=== PATIENT | female | born 1960 | race Caucasian/White ===

== ENCOUNTER 2019-11-14 16:18 | Inpatient (IN) | payer BC ==
[~2019-11-14] VITALS: Ht 152.4 cm; Wt 119.0 kg
[2019-11-14 22:24] VITALS: BP 133/69; PULSE 74; TEMP 98
[2019-11-14] MEDS ORDERED: ACTOS 45MG45 MG/TAB PO (23:14)
[2019-11-14] MEDS ORDERED: COZAAR100 MG PO (23:14)
[2019-11-14] MEDS ORDERED: ASPIRIN E.C. 8181 MG PO (23:15)
[2019-11-14] MEDS ORDERED: SLOW FE142 MG PO (23:17)
[2019-11-14] MEDS ORDERED: TOPROL XL100 MG PO (23:19)
[2019-11-14] MEDS ORDERED: NEXIUM 40MG40 MG PO (23:19)
[2019-11-14] MEDS ORDERED: ZOCOR 40MG40 MG PO ×2 (23:20→23:21)
[2019-11-14] MEDS ORDERED: ZYLOPRIM 100MG100 MG (23:23)
[2019-11-14] MEDS ORDERED: NORCO 325 MG-51 TAB PO (23:24)
[2019-11-15 05:15] VITALS: BP 116/62; PULSE 87; TEMP 98.4
--- NOTE | 2019-11-15 05:49 | NUR ---
PATIENT HAS RESTED THROUGH THE NIGHT AND HAD NOT COMPLAINTS. WILL REPORT OFF TO DAY SHIFT
--- NOTE | 2019-11-15 15:03 | NUR ---
Nuclear Instructor contacted patient by phone to complete initial intake as patient is new to [facility]. Patient lives alone in [place], [place] but her parents live nearby. Patient's father Laci can be contacted at ph#[phone]. Patient sees Dr. Parra for primary care and has most of her medications mailed to her by [facility]. Patient also utilizes [facility] pharmacy as needed. Patient has a cane that she uses as needed and reports her mom has a walker that belonged to her grandmother. Patient states she is normally independent with ADLS. Patient does not have a DPOA-HC and is not interested in setting up Advance Directives at this time. Patient plans to discharge to her parents home for a short time before getting back home. SW to continue to follow.
[2019-11-15 15:38] VITALS: BP 130/78; PULSE 83; TEMP 97.8
[2019-11-15 16:59] VITALS: BP 130/78; PULSE 83; TEMP 97.8
--- NOTE | 2019-11-15 17:22 | NUR ---
Patient attended all therapies today, signed all her paperwork for admissions. Educated on IPR daily activities and what is expected of her. Patient reported pain to LLE and LUE this morning and was given prn [place] with good effect. Patient tolerating diet well - being on an ADA diet and on AC/HS accuchecks. Patient currently resting in wheelchair, call light in reach and denies questions at this time.
[2019-11-15 18:00] VITALS: BP 130/78; PULSE 83; TEMP 97.8
--- NOTE | 2019-11-15 23:15 | NUR ---
Received report from GRIFFIN Garcia. Alert and oriented. C/O pain to LT leg, rate 4/10, tolerable at this time. Pt will notify staff of need of pain meds. Lt leg with immobilizer in place. Lt lower arm in splint wrapped with THIERRY. Meds administered as ordered. Robert hose to RLE removed at this time. Needs met. Call light within reach.
[2019-11-16 05:27] VITALS: BP 113/55; PULSE 89; TEMP 98
[2019-11-16 07:19] VITALS: BP 124/75
[2019-11-16 15:57] VITALS: BP 113/71; PULSE 69; TEMP 97.6
--- NOTE | 2019-11-16 18:27 | NUR ---
Patient attended all therapies today. Tolerated diet well. This nurse observed a closed blister 1 1/2" x 1" to the posterior left thigh under her immobilizer. Area was secured with a mepilex bandage. Will continue to monitor.
--- NOTE | 2019-11-16 18:30 | NUR ---
PT REPORT RECEIVED FROM DAYSHIFT NURSE AT BEDSIDE. PT IS RESTING IN BED WITH TV ON AND CALL LIGHT AT HER SIDE. WILL CONTINUE TO MONITOR.
--- NOTE | 2019-11-16 18:33 | NUR ---
Patient resting in bed at this time, call light in reach and bed alarm set eating her supper.
--- NOTE | 2019-11-16 23:40 | NUR ---
PT IS A&OX4, ABLE TO MAKE WANTS/NEEDS KNOWN, IS COOPERATIVE WITH CARE AND USE OF CALL LIGHT. PT REQUIRES ASSISTANCE TO TRANSFER IN/OUT OF BED WELL TO USE THE BEDSIDE COMMODE SECONDARY TO WEAKNESS AND THE NON USE OF HER L.U.E WHICH IS IN A SOFT CAST. PT DENIES PAIN AT THIS TIME AND IS IN A PLEASANT MOOD. PT PRESENTS WITH NO S/S OF DISTRESS. CALL LIGHT IS AT HER SIOE AND HER BEDSIDE TABLE HAS MULTIPLE PERSONAL EFFECTS AND BEVERAGES THAT ARE WITHIN REACH. WILL CONTINUE TO MONITOR.
--- NOTE | 2019-11-16 23:43 | NUR ---
PT WAS ASSISTED TO THE BEDSIDE COMMODE EARLIER IN THE SHIFT AND WAS NOTED TO PRODUCE URINE THAT IS CLEAR AND NO BM NOTED. PT REQUIRES ASSISTANCE WITH TOILETING HYGIENE, CLOTHING MANAGEMENT, AND ASSISTANCE TO TRANSFER IN AND OUT OF BED. PT HAS BEEN RESTING PREACEFULLY IN BED WATCHING TV SO FAR THIS SHIFT. CALL LIGHT REMAINS WITHIN REACH. WILL CONTINUE TO MONITOR.
--- NOTE | 2019-11-17 03:19 | NUR ---
Pt RESTING IN BED PEACEFULLY WITH NO S/S OF DISTRESS NOTED. CALL LIGHT AT Pt SIDE. WILL CONTINUE TO MONITOR.
--- NOTE | 2019-11-17 05:17 | NUR ---
Pt HAS HAD A QUIET, PEACEFUL NIGHT. Pt HAS USED CALL LIGHT TO NOTIFY THIS MINE WEDGE SAWYER WHEN SHE NEEDED TO USE THE BEDSIDE COMMODE. Pt HAS BEEN COOPERATIVE WITH CARE AND COMPLIANT WITH MEDICATION REGIMEN. Pt REQUIRES ASSISTX1 TO TRANSFER IN/OUT OF BED, ASSIST X1 TO TRANSFER ON/OFF THE COMMODE, REQUIRES ASSISTANCE WITH TOILETING HYGIENE FOR BM WELL URINE, AND ASSISTANCE WITH REPOSITIONING CLOTHING PRIOR TO, AND AFTER, USING COMMODE. Pt HAS CALL LIGHT WITHIN REACH AND IS RESTING IN BED WITH EYES CLOSED AND NO S/S OF DISTRESS NOTED. CALL LIGHT IS AT Pt SIDE. WILL CONTINUE TO MONITOR.
[2019-11-17 05:51] VITALS: BP 117/57; PULSE 93; TEMP 98.5
--- NOTE | 2019-11-17 08:40 | NUR ---
LEFT THE UNIT TO GO TO THERAPY
--- NOTE | 2019-11-17 08:57 | NUR ---
PATIENT ASSESSMENT COMPLETE. SHE WAS ASSISTED TO THE BEDSIDE COMMODE WITH SOME DIFFICULTY, FEELING "STIFF" THIS MORNING. [place] WAS UTILIZED AND THE COMMODE WAS RIGHT THERE FOR HER TO REACH FOR IT. X1 ASSIST. SHE IS NOT ABLE TO LIFT HER SKIRT NOR WIPE HER BEHIND BEFORE OR AFTER VOIDING. PRN PAIN MEDICATION WAS PROVIDED.
--- NOTE | 2019-11-17 10:32 | NUR ---
PATIENT RETURNS FROM PHYSICAL THERAPY
--- NOTE | 2019-11-17 11:58 | NUR ---
PRN PAIN MEDICATION GIVEN 2 TABS AT THIS TIME. SHE IS UP IN THE WHEELCHAIR EATING LUNCH, NO OTHER NEEDS AT THIS TIME.
[2019-11-17 15:16] VITALS: BP 123/48; PULSE 73; TEMP 98.1
--- NOTE | 2019-11-17 18:39 | NUR ---
PATIENT ASSISTED BACK TO BED WITH LITTLE DIFFICULTY. SHE TOLERATES VERY WELL.
--- NOTE | 2019-11-18 03:42 | NUR ---
RESTING QUIETLY/SLEEPING. NO N/V. NORCO ADMIN. FOR LEFT UPPER/LOWER EXTREMITY PAIN.
[2019-11-18 06:04] VITALS: BP 109/54; PULSE 87; TEMP 97.9
--- NOTE | 2019-11-18 07:30 | NUR ---
Report rcvd from GRIFFIN Monk. Pt is in bed upon bedside report eating breakfast. Pt has no c/o overwhelming pain, but does have some discomfort at this time. She states "I would like to get up to the chair closer to lunch time." This RN told her that is fine, and I would be happy to assist her to the chair later in the morning. Pt has no current needs at this time. Assessment completed. Call light and personal belongings within reach. No further concerns at this time.
--- NOTE | 2019-11-18 10:15 | NUR ---
Pt up to bedside commode with X1 assistance. Pt does well standing, and rotating to the bedside commode. Pt does not c/o much pain with this movement, but does state it's difficult to move with the limited ability to put weight on her left leg. Pt had med/lg bm. Did c/o it being somewhat hard, so will give pt a stool softner. Assisted pt back to bed. Call light and personal belongings within reach. No further concerns at this time.
[2019-11-18 16:55] VITALS: BP 119/56; PULSE 74; TEMP 97.7
--- NOTE | 2019-11-18 19:09 | NUR ---
PATIENT UP IN CHAIR DURING CHANGE OF SHIFT REPORT FROM DAY SHIFT NURSEKAYLEEN. DENIES ANY NEEDS, LEG BRACE ON TO LLE AND SLPINT WITH THIERRY WRAP TO LUE CONTINUES.
--- NOTE | 2019-11-18 19:22 | NUR ---
Pt had an uneventful day. Movement was difficult as pt did not want to put any weight on her left leg. Pt had x2 soft dark stools. Urinated x3 today. Report given to GRIFFIN Strong. Transfer of care completed.
--- NOTE | 2019-11-18 20:00 | NUR ---
BRACE TO LLE INTACT, HAS SPLINT/THIERRY DRSG TO L WRIST INTACT. UNABLE TO AMBULATE DUE TO NOT HAVING ANY MODIFIED AMBULATORY DEVICES AND UNABLE TO BEAR WT TO LLE PER DR ORDER. PATIENT TRANSFERS FROM CHAIR/BED/BSC WITH X1 STAFF ASSIST. DENIES NUMBNESS/TINGLING TO EXTREMITIES AT THIS TIME.
--- NOTE | 2019-11-19 01:26 | NUR ---
PATIENT SLEEPING, DOES NOT AWAKEN WHEN DOOR TO ROOM IS OPENED BY STAFF, OBSERVED BREATHING NONLABORED AND EVEN. BED ALARM ON.
[2019-11-19 03:54] VITALS: BP 122/47; PULSE 86; TEMP 97.4
[2019-11-19 04:00] VITALS: BP 122/47; PULSE 86; TEMP 97.4
[2019-11-19 06:27] LABS: BASO % 0.4 % (0.0-2.0); EOS # 0.3 (0.0-0.7); EOS % 6.7 % (0-4.0); GRAN # 2.6 (1.4-6.5); GRAN % 55.4 % (42.2-75.2); LYMPH # 1.3 (1.2-3.4); LYMPH % 28.4 % (20.0-51.0); MEAN CELL VOLUME 93 fl (80.0-100.0); MEAN CORPUSCULAR HEMOGLOBIN 29 pg (27.0-31.0); MEAN CORPUSCULAR HGB CONC 31 g/dl (33.0-37.0); MEAN PLATELET VOLUME 10.6 fl (7.4-10.4); MONO # 0.4 (0.1-0.6); MONO % 8.7 % (1.7-9.3); PLATELET COUNT 243 K/mm3 (130-400); RED BLOOD COUNT 3.44 M/mm3 (4.10-5.30); REDCELL DISTRIBUTION WIDTH-CV 13.9 % (11.5-14.5)
[2019-11-19 06:58] LABS: CALCIUM 9.4 mg/dL (8.4-10.2); CREATININE, serum 1.63 (0.52-1.25); MAGNESIUM 1.9 mg/dL (1.6-2.3); POTASSIUM 4.7 mmol/L (3.4-5.0)
--- NOTE | 2019-11-19 07:17 | NUR ---
PATIENT RESTING IN BED DURING CHANGE OF SHIFT REPORT GIVEN TO DAY SHIFT NURSERHIANNON. BED ALARM ON.
--- NOTE | 2019-11-19 09:03 | NUR ---
Patient had a shower this morning with OT. Given prn [place] with good effect. Blister to left upper thigh under immobilizer has popped, but is still closed. Secured with mepilex bandage. Will continue to monitor.
--- NOTE | 2019-11-19 11:33 | NUR ---
Patient working with therapy at this time.
--- NOTE | 2019-11-19 13:29 | NUR ---
Given prn stool softners per patient request.
--- NOTE | 2019-11-19 16:43 | NUR ---
SW met with the patient to introduce oneself and to follow up after the weekend. The patient had no questions or concerns.
[2019-11-19 17:42] VITALS: BP 124/59; PULSE 75; TEMP 97
--- NOTE | 2019-11-19 17:46 | NUR ---
Patient attended all therapies today, tolerated diet well. She is currently resting in recliner, call light in reach and alarm is set. Patient has not needed any pain meds this afternoon. Denies any questions at this time.
--- NOTE | 2019-11-19 19:23 | NUR ---
Reported off to night nurse.
--- NOTE | 2019-11-19 19:30 | NUR ---
PATIENT UP IN CHAIR DURING CHANGE OF SHIFT REPORT FROM DAY SHIFT NURSERHIANNON. CHAIR ALARM ON.
--- NOTE | 2019-11-19 20:00 | NUR ---
DECREASED ROM/NWB TO L HAND D/T SPLINT/THIERRY DRSG THAT IS CDI, DECREASED ROM/NWB TO LLE D/T LEG BRACE IN PLACE. UNABLE TO PALPATE PULSES TO L WRIST DUE TO SPLINT THIERRY DRSG. PATIENT UP IN CHAIR WITH CHAIR ALARM ON.
--- NOTE | 2019-11-19 22:00 | NUR ---
PATIENT TRANSFERED TO BSC THEN PUT TO BED AFTER VOIDING. TRANSFERED WITH X1 STAFF ASST W/GB AND 4 POINT CANE, WITH SOME DIFFICULTY DUE TO FATIGUE/PAIN FROM SITTING UP IN CHAIR "TOO LONG". DISCUSSED WITH PATIENT TO REMEMBER TO CHANGE POSITIONS OFTEN IF POSSIBLE TO AVOID DISCOMFORT FROM PROLONGED STATIONARY POSITIONING. BED ALARM ON AFTER PUT TO BED.
--- NOTE | 2019-11-20 01:29 | NUR ---
PATIENT SLEEPING, DOES NOT AWAKEN WHEN DOOR TO ROOM IS OPENED BY STAFF. OBSERVED BREATHING NONLABORED AND EVEN. BED ALARM ON.
[2019-11-20 06:33] VITALS: BP 130/60; PULSE 91; TEMP 98.9
--- NOTE | 2019-11-20 06:58 | NUR ---
PATIENT RESTING IN BED DURING CHANGE OF SHIFT REPORT GIVEN TO DAY SHIFT NURSERHIANNON. BED ALARM ON.
--- NOTE | 2019-11-20 09:01 | NUR ---
Patient working with therapy at this time. Patient given prn pain meds to help with left leg and arm pain this AM with good effect. Patient slept well last night. Denies questions at this time.
--- NOTE | 2019-11-20 13:57 | NUR ---
Admission QIM scores were reviewed by the team. Code of 6 for oral hygiene was determined by team discussion to be the most usual performance before interventions for this patient during the assessment period. Code of 3 chosen for lying to sitting on side of bed was determined by team discussion to be the most usual performance before interventions for this patient during the assessment period.--Elsy Flores, PD
--- NOTE | 2019-11-20 14:23 | NUR ---
Patient resting in wheelchair drinking nutrition drink at this time. Call light is in reach and denies any questions at this time.
[2019-11-20 18:00] VITALS: BP 120/74; PULSE 74; TEMP 97.4
--- NOTE | 2019-11-20 19:30 | NUR ---
PATIENT UP IN CHAIR DURING CHANGE OF SHIFT REPORT FROM DAY SHIFT NURSERHIANNON. CHAIR ALARM ON.
--- NOTE | 2019-11-20 20:00 | NUR ---
DECREASED ROM TO L WRIST D/T SPLINT/THIERRY DRSG, ABLE TO WIGGLE FINGERS TO L HAND. DECREASED ROM TO LLE D/T LEG BRACE AND UNABLE TO WALK D/T NWB STATUS TO LLE AND LUE. DENIES NUMBNESS/TINGLING TO EXTREMITIES. PATIENT ABLE TO WIGGLE L FOOT/TOES ON COMMAND.
--- NOTE | 2019-11-20 20:32 | NUR ---
Call placed to [facility] asking if patient was seen by a provider. It was reported that patient had a tele med virtual visit and Dr. Swartz was the hospitalist that sent orders for patient to be admitted to [facility]. If Dr. Gruber has any questions for this doctor he can be reached on his cell phone #[phone]. Patient will need to follow up with her PCP and Ortho, Dr. Bernal upon discharge. Follow up Xrays can be taken at Dr. Bernal's office at that time. Dr. Mariposa Bernal is available every other week. Appointments can be made through her office [phone]. Upon discharge her office would like progress notes and discharge documents faxed to [phone].
--- NOTE | 2019-11-20 23:45 | NUR ---
PATIENT SLEEPING, AWAKENS EASILY WITH NAME CALLED. SEE eMAR FOR SCHEDULED MEDS GIVEN. BED ALARM ON. DENIES ANY NEEDS AT THIS TIME.
[2019-11-21 06:04] VITALS: BP 117/54; PULSE 88; TEMP 97.8
--- NOTE | 2019-11-21 07:06 | NUR ---
Sitting in bed with eyes open. Rates pain 3/10 in left leg at this time. Patient would like pain medication with morning meds because the pain increases when she does therapy. Patient denies further needs at this time.
--- NOTE | 2019-11-21 07:30 | NUR ---
PATIENT RESTING IN BED DURING CHANGE OF SHIFT REPORT GIVEN TO DAY SHIFT NURSESYDNEY. BED ALARM ON.
--- NOTE | 2019-11-21 10:40 | NUR ---
Sitting up in wheelchair in room. Patient says she is waiting on OT so they can do her shower. Patient says she had quite a bit of pain with PT this morning, but her pain has decreased since she has rested. Would like one pain pill with her lunch. Denies further needs at this time.
--- NOTE | 2019-11-21 11:59 | NUR ---
Rates pain 6/10 in left leg. Administered [place] per patient request as prescribed. Patient sitting up in wheel chair eating lunch. Denies further needs.
[2019-11-21 16:41] VITALS: BP 146/86; PULSE 75; TEMP 98.3
--- NOTE | 2019-11-21 17:04 | NUR ---
Requested medication for constipation. Administered [place] as prescribed. Patient sitting up in recliner with eyes open eating dinner and watching TV. Denies further needs at this time.
--- NOTE | 2019-11-21 17:44 | NUR ---
Sitting in recliner chair with legs elevated watching TV. Patient denies any concerns or needs at this time.
--- NOTE | 2019-11-22 01:38 | NUR ---
PATIENT DOING WELL TONIGHT. STATES PAIN IS ONLY ABOUT A 2 AND DENIES PAIN CONTROL NEEDS. SOFT CAST IN PLACE TO L WRIST. L KNEE IMOBILIZER IN PLACE. DENIES ANY OTHER NEEDS, WILL CONTINUE TO MONITOR.
[2019-11-22 03:11] VITALS: BP 102/49; PULSE 87; TEMP 98
--- NOTE | 2019-11-22 06:47 | NUR ---
Lying in bed with eyes open. Rates pain 1/10 in left leg. [place] administered to stay ahead of pain per patient request due to therapy today. Splint in place to left wrist. Patient has knee immobilizer to left knee. Patient denies needs at this time.
[2019-11-22 06:54] VITALS: BP 113/60; PULSE 88
--- NOTE | 2019-11-22 07:09 | NUR ---
Patient requests additional pain pill as her pain is highest with initial start to therapy. Additional pill provided. Patient assisted up to BSC to urinate and returns back to bed to eat breakfast.
--- NOTE | 2019-11-22 09:18 | NUR ---
Message left for IDRIS Gonzalez with Ortho, to contact this nurse regarding consult placed for the patient.
--- NOTE | 2019-11-22 09:47 | NUR ---
Carlos PA with Ortho, calls back and informed that consult has been placed.
--- NOTE | 2019-11-22 10:41 | NUR ---
Patient requests to sit on bedside commode to try to have bowel movement. Assisted up to BSC with assist of one. Will call when done.
--- NOTE | 2019-11-22 10:55 | NUR ---
Patient has medium formed BM. Assisted patient in cleaning bottom and russ area. Patient back to bed. Patient denies further needs at this time.
--- NOTE | 2019-11-22 11:36 | NUR ---
Patient out of room working with PT.
--- NOTE | 2019-11-22 11:56 | NUR ---
KASI met with the patient to discuss Team Conference notes and the recommendation of needing a wheelchair with elevating legrests, a tub transfer bench and the anticipated discharge date of 11/27. The patient to choose a DME company. The patient will be staying with her friend, Heidi in [place] at discharge. SW provided Medicare.gov's list of HH agencies in [place]. The patient will look it over then inform KASI of her choice. KASI discussed scheduling the family meeting.The patient and Heidi were in agreeance with the meeting at 1300 on Tuesday, 11/22. Heidi's phone number is ([phone]). KASI informed [facility] Director.
--- NOTE | 2019-11-22 12:01 | NUR ---
Rates pain 4/10 in left leg. Would like a pain pill as she has therapy after lunch. Administered [place] as prescribed. Patient sitting up in wheelchair eating lunch. Denies further needs.
--- NOTE | 2019-11-22 12:35 | NUR ---
IDRIS Gonzalez with Ortho, in room talking with the patient.
--- NOTE | 2019-11-22 14:20 | NUR ---
Sitting up in wheel chair watching TV. Denies concerns or needs at this time.
[2019-11-22 15:59] VITALS: BP 102/56; PULSE 83; TEMP 97.8
--- NOTE | 2019-11-22 18:14 | NUR ---
Sitting up in recliner watching TV. Patient denies any needs at this time.
--- NOTE | 2019-11-22 20:20 | NUR ---
PT IN BED WITH HOB ELEVATED TO 45 DEGREE ANGLE, A/O X4, WITH NO C/O PAIN OR DISCOMFORT. PT HAD JUST BEEN ASSISTED BY DENTIST/OWNER TO BATHROOM AND THEN BACK TO BED. PT HAS CALL LIGHT AND PERSONAL BELONGINGS WITHIN REACH.
[2019-11-23 03:53] VITALS: BP 121/56; PULSE 106; TEMP 98.1
--- NOTE | 2019-11-23 05:54 | NUR ---
PT SLEPT WELL DURING THE NIGHT. ONLY CALLED ONCE FOR ASSISTANCE TO GO TO THE BATHROOM. PT DENIED PAIN OR DISCOMFORT. CALL LIGHT WITHIN REACH.
--- NOTE | 2019-11-23 09:25 | NUR ---
Call placed to Dr. Silveira's nurse do determine if patient can bear weight through the elbow. Awaiting a return call.
--- NOTE | 2019-11-23 13:31 | NUR ---
A Family Conference was conducted with pt & pt's friend (Heidi), via phone. Also present was PT, OT, & Technology Program Manager. Technology Program Manager started by explaining the purpose of the meeting. The therapists explained how pt has been functioning & making good progress. Informed them of d/c for 11/28/19 w/ recommendation for home health PT/OT, which they seemed fine w/ the plan. They had no questions at this time.
[2019-11-23 18:06] VITALS: BP 143/63; PULSE 88; TEMP 98
--- NOTE | 2019-11-23 20:00 | NUR ---
Received report from Radha. Patient is sitting at the recliner. With feet elevated. With left arm cast and immobilizer on left leg. Patient not in pain at the moment. Call light within reach.
--- NOTE | 2019-11-23 20:39 | NUR ---
Received call from Dr. Silveira's nurse with the following order: WBAT to left elbow using platform walker. This was communicated to therapy.
--- NOTE | 2019-11-23 20:46 | NUR ---
Patient attended all therapies today, given prn pain meds this morning and afternoon and were effective. See new order per Dr. Silveira - WBAT through left elbow on platform walker.
--- NOTE | 2019-11-24 00:06 | NUR ---
Assisted patient in bedside commode with the use of gaitbelt and platform walker. Denies any pain.
[2019-11-24 05:23] VITALS: BP 129/54; PULSE 87; TEMP 97.9
--- NOTE | 2019-11-24 07:34 | NUR ---
Accucheck taken. 152mg/dl. Assisted patient in bedside commode. She was able to urinate. She wants to stay in the recliner for her breakfast. Endorsed patient to [place].
--- NOTE | 2019-11-24 07:58 | NUR ---
PATIENT ASSESSMENT COMPLETED. SHE IS UP IN THE CHAIR FINISHED BREAKFAST. REQUESTS ONE PAIN PILL AT THIS TIME. NO OTHER NEEDS AT THIS TIME.
[2019-11-24 17:25] VITALS: BP 96/44; PULSE 78; TEMP 97.6
--- NOTE | 2019-11-24 18:55 | NUR ---
PATIENT RESTING IN CHAIR ON THE PHONE. NO NEEDS AT THIS TIME
--- NOTE | 2019-11-25 05:02 | NUR ---
PATIENT CARE WAS TAKEN OVER BY THIS NURSE. UPON ASSESSMENT NO ABNORMALITIES WERE FOUND. PATIENT SLEPT IN THE CHAIR AND STATED THAT SHE COULD GET BETTER ADJUSTED IN THE CHAIR. PATIENT NEEDED ASSIST X1 WHEN SHE WAS UP TO USE THE BATHROOM. PATIENT DID NOT REQUIRE ANY INSULIN AT HS. PATIENT HAS DENIED ANY PAIN. DENIES ANY OTHER NEEDS AT THIS TIME. WILL REPORT OFF TO DAY SHIFT UPON THEIR ARRIVAL.
[2019-11-25 05:16] VITALS: BP 128/54; PULSE 86; TEMP 98.4
--- NOTE | 2019-11-25 08:00 | NUR ---
Denied pain. Stated slept better in recliner chair last night rather than in the bed. Left leg immobilizer in place. Transfers with platform walker, NWB left leg.
[2019-11-25 17:39] VITALS: BP 99/51; PULSE 76; TEMP 98.1
--- NOTE | 2019-11-25 18:00 | NUR ---
No c/o pain today. Requires one staff assist to transfer with platform walker. Wheeled self in w/c in room.
--- NOTE | 2019-11-25 18:30 | NUR ---
Pt REPORT RECEIVED AT BEDSIDE FROM CARRILLO MOYA. CALL LIGHT IS AT Pt SIDE WHILE SHE SITS IN THE RECLINER WITH NO COMPLAINTS OF PAIN, AND NO WANTS/NEEDS AT THIS TIME. WILL CONTINUE TO MONITOR.
--- NOTE | 2019-11-25 23:14 | NUR ---
Pt has been resting in the recliner with her feet elevated since the start of the shift. Pt states that she is more comfortable in the recliner than the bed and that she slept better in the recliner last night than she has in the bed previous nights. Pt is cooperative with care and compliant with medication regimen. Pt was surprised that her Blood Sugar was 222 at HS (requiring 6 units of Novolog per sliding scale orders) and stated that she has had "good sugars" all day andthis is the first insulin she has required today. Pt requires assistance for all activities and all transfers due to reduced mobility secondary to recent surgery to her LLE which presents in an immobilizer brace. Pt is noted to have her mepilex border dressing to her LLE serrano and posterior thigh CDI. Brace re-secured after skin assessment. Pt has call light within reach as well as personla items and beverage on the bedside table in front of her. Pt remains in stable condition at this time with no s/s of distress noted. Will continue to monitor.
--- NOTE | 2019-11-26 02:45 | NUR ---
Pt remains resting comfortably in her recliner with eyes closed and no s/s of distress noted. Pt has call light within reach and sitting on her bed and the bedside table is in front of her with beverage within reach. Will continue to monitor.
[2019-11-26 05:11] VITALS: BP 108/56; PULSE 86; TEMP 98.1
[2019-11-26 06:56] LABS: CALCIUM 9.7 mg/dL (8.4-10.2); CREATININE, serum 1.6 (0.52-1.25); MAGNESIUM 1.6 mg/dL (1.6-2.3); POTASSIUM 4.8 mmol/L (3.4-5.0)
[2019-11-26 07:00] LABS: HEMOGLOBIN 10.5 g/dl (12.5-16.0); MEAN CELL VOLUME 95 fl (80.0-100.0); MEAN CORPUSCULAR HEMOGLOBIN 29 pg (27.0-31.0); MEAN CORPUSCULAR HGB CONC 31 g/dl (33.0-37.0); PLATELET COUNT 291 K/mm3 (130-400); RED BLOOD COUNT 3.62 M/mm3 (4.10-5.30); REDCELL DISTRIBUTION WIDTH-CV 14.4 % (11.5-14.5)
[2019-11-26 07:09] LABS: HEMATOCRIT 34.3 % (37.0-47.0)
[2019-11-26 07:58] LABS: BAND 6 % (0-10); EOSINOPHIL 3 % (0-4); LYMPHOCYTE 28 % (20.0-51.0); METAMYELOCYTE 2 % (0-0); MYELOCYTE 1 % (0-0); NEUTROPHILS 56 % (42.0-75.2); PLATELET ESTIMATE NORMAL (NORMAL)
--- NOTE | 2019-11-26 13:00 | NUR ---
PATIENT LUE SPLINT THIERRY WRAP REMOVED AND RE-APPLIED PER PATIENT REQUEST. PATIENT TOLERATED WELL.
--- NOTE | 2019-11-26 14:00 | NUR ---
PATIENT IS SITTING UP IN THE BEDSIDE CHAIR. PATIENT IS A&OX4. VSS. BOWEL SOUNDS ACTIVE ALL FOUR QUADRANTS. PATIENT TOLERATING DIET WITHOUT ANY COMPLAINTS OF N/V. GENERALIZED WEAKNESS NOTED. POSITIVE PEDAL PULSES EQUAL BILATERALLY. CAP REFILL <3 SECONDS. CMS INTACT. LEFT TIB/FIB DRESSED WITH MEPLEX AND IS CD&I. IMMOBILIZER IN PLACE TO LLE. EDEMA TO BLE NOTED. LEFT LATERAL THIGH BLISTER COVERED WITH A MEPLEX DRESSING AND IS CD&I. LEFT ARM SPLINT DRESSED WITH AN THIERRY WRAP TO LUE AND IS CD&I. CAP REFILL <3 SECONDS. CMS INTACT. PATIENT STATES THAT HER PAIN IS MINIMAL AT REST. CALL LIGHT WITHIN REACH. PATIENT DENIES ANY OTHER NEEDS AT THIS TIME.
--- NOTE | 2019-11-26 16:11 | NUR ---
KASI met with the patient to follow up on home health and DME preference. The patient chose [facility] (#[phone]). KASI contacted and faxed a referral to Dori at [facility]. Dori reports that they are able to accept the patient for services at that they will just need to get auth from the patient's insurance. KASI updated the patient. The team is recommending a wheelchair with removeable/swing away arms and elevating leg rests and a FWW with a left platform attachment. The patient chose [facility]. KASI contacted Rosaura at [facility]. Rosaura reports that they do not have any wheelchairs with removeable arm rests. KASI contacted [facility] and [facility] to inquire if they have both items. [facility] reports that they have the wheechair, but not the walker with platform in stock. [facility] reports that they have both items. All three DME companies report that they are unsure if insurance will cover for both items at the same time. KASI informed the patient of this. The patient would like to pursue with getting both items at [facility]. She states that her parents would be able to pick the equipment up. She states that if insurance does not cover getting both items at the same time, then she would want the wheelchair first. KASI contacted and faxed the DME order to [facility]. KASI awaiting approval for equipment. SW to continue to follow.
[2019-11-26 17:07] VITALS: BP 107/55; PULSE 99; TEMP 97.7
--- NOTE | 2019-11-26 18:36 | NUR ---
REPORT GIVEN TO GRIFFIN GOLD.
--- NOTE | 2019-11-26 21:20 | NUR ---
PT SITTING IN RECLINER, HAS PAIN IN LEFT LEG, GAVE NORCO. ASSISTED PT TO BEDSIDE COMMODE. PT TRANSFERED WITHOUT ANY PROBLEMS. PT PREFERS TO SLEEP IN RECLINER. CALL LIGHT WITHIN REACH. NO FURTHER NEEDS AT THIS TIME.
--- NOTE | 2019-11-27 04:08 | NUR ---
PT SLEEPING WELL THIS NIGHT. NO CHANGES OR ISSUES. CALL LIGHT WITHIN REACH.
[2019-11-27 05:20] VITALS: BP 134/78; PULSE 105; TEMP 97.9
--- NOTE | 2019-11-27 09:56 | NUR ---
Patient attending therapies this morning and given prn norco with some effect. Will continue to monitor.
[2019-11-27 15:50] VITALS: BP 105/44; PULSE 85; TEMP 97.4
--- NOTE | 2019-11-27 16:00 | NUR ---
KASI contacted Dori with [facility] and they can accept the patient for HHS at discharge. KASI contacted Home [facility] informed them that the patient's parents will chart picker her equipment. The Home construction representative states that there should be problems with the patient's insurance covering the equimpment. KASI informed the patient and the patient's nurse. Will continue to monitor.
--- NOTE | 2019-11-27 18:40 | NUR ---
Area to patient's posterior left thigh was assessed with closed area that is dark in color 4.5 cm x 1 cm oblong shape.
--- NOTE | 2019-11-27 19:13 | NUR ---
Patient attended all therapies today. Follow up appointments have been scheduled. Abrasion to lower back has healed. Patient is a one assist with her platform walker. She will be discharged tomorrow going home to a friends house with Home Health PT/OT. Reported off to night nurse.
--- NOTE | 2019-11-27 21:17 | NUR ---
PATIENT DOING WELL TONIGHT. DENIES PAIN. IMMOBILIZER TO LLE. SOFT CAST TO LUE. PATIENT ASSISTED TO BEDSIDE COMMODE WITH X1 ASSIST AND USE OF WALKER. SORE TO L POSTERIOR THIGH COVERED WITH MEPILEX DRESSING. TOOK SCHEDULED PILLS WITHOUT ISSUE. WBG 102, NO INSULIN REQUIRED. NO FURTHER NEEDS AT THIS TIME. WILL CONTINUE TO MONITOR. CALL LIGHT IN REACH.
[2019-11-28 05:16] VITALS: BP 92/46; PULSE 89; TEMP 98.2
[2019-11-28 07:14] VITALS: BP 126/67; PULSE 92
--- NOTE | 2019-11-28 09:09 | NUR ---
Patient resting in recliner at this time awaiting discharge this afternoon. Patient denied pain this morning. She was a one assist with platform walker to the bed side commode. Patient had a medium BM. Will continue to monitor.
[2019-11-28] MEDS ORDERED: TYLENOL 325MG325 MG PO (09:38)
[2019-11-28] MEDS ORDERED: FERRO-TIME325 MG PO (09:39)
[2019-11-28] MEDS ORDERED: NORCO 325 MG-51 TAB PO (09:39)
--- NOTE | 2019-11-28 10:10 | NUR ---
The patient is to tentatively discharge to [place] with a friend today, 11/27 with [facility]. KASI faxed discharge orders to Dori at [facility]. There are no additional needs at this time.
--- NOTE | 2019-11-28 14:20 | NUR ---
Patient Health Summary, Discharge Summary, and Home Meds printed and reviewed with patient. Stressed importance of follow up appointments. Belongings gathered by GRIFFIN/Radha including brown purse, cell phone, fueler, pills returned from pharmacy and misc. personal items. Patient was transported via wheelchair by GRIFFIN/Radha and seatbelted for ride home with . Patient denied questions.
== END 2019-11-28 14:20 | disposition home health service (06) | DRG 561 ==
PROVIDERS: ADMIT Internal Medicine
DX: S82.142D Displaced bicondylar fracture of left tibia, subsequent encounter for closed fracture with routine healing (principal); S82.832D Other fracture of upper and lower end of left fibula, subsequent encounter for closed fracture with routine healing; S52.502D Unspecified fracture of the lower end of left radius, subsequent encounter for closed fracture with routine healing; E11.9 Type 2 diabetes mellitus without complications; E66.01 Morbid (severe) obesity due to excess calories; M10.9 Gout, unspecified; N18.9 Chronic kidney disease, unspecified; I95.9 Hypotension, unspecified; I12.9 Hypertensive chronic kidney disease with stage 1 through stage 4 chronic kidney disease, or unspecified chronic kidney disease; W18.30XD Fall on same level, unspecified, subsequent encounter; D63.1 Anemia in chronic kidney disease; E78.5 Hyperlipidemia, unspecified; Z79.82 Long term (current) use of aspirin; Z79.891 Long term (current) use of opiate analgesic; Z88.0 Allergy status to penicillin; Z88.8 Allergy status to other drugs, medicaments and biological substances
CPT/HCPCS: 99222-AI; 99231-AI; 99232-AI; 99239; J1644; J1815